=== PATIENT | female | born 1995 | race Caucasian/White ===

== ENCOUNTER → 2016-05-13 | Outpatient (CLI) | payer OTHER, MEDICAID | LOC: LAB 14:14 | PROVIDERS: ATTEND Obstetrics & Gynecology | DX: O02.1 Missed abortion (principal) | CPT/HCPCS: 36415; 84702 ==

== ENCOUNTER 2016-05-20 22:40 | Emergency (ER) | payer OTHER, MEDICAID ==
[~2016-05-20] VITALS: Ht 154.9 cm; Wt 56.8 kg
[2016-05-20] MEDS ORDERED: ED- ACETAMINOHEN/CODEINE 300MG/30 MG (TYLENOL #3) 6 TABLETS/BTL PO ONE (23:15)
[2016-05-20] MEDS ORDERED: ACETAMINOPHEN/CODEINE 300MG/30 MG (TYLENOL #3) TABLET PO ONE (23:15)
[2016-05-20] MEDS ORDERED: KETOROLAC 60 MG/2 ML (TORADOL) VIAL IM ONE (23:15)
[2016-05-21 00:13] VITALS: BP 122/82
== END 2016-05-21 00:10 | disposition home or self-care (01) ==
LOC: ED 22:42
DX: O03.4 Incomplete spontaneous abortion without complication (principal); R10.2 Pelvic and perineal pain
CPT/HCPCS: 96372; 99283; J1885